=== PATIENT | female | born 1990 | race African-American/Black ===

== ENCOUNTER 2021-07-30 18:48 | Emergency (ER) | payer SELFPAY ==
[~2021-07-30] VITALS: Ht 160 cm; Wt 86.2 kg
[2021-07-30] MEDS ORDERED: KETOROLAC TROMETHAMINE 30 MG/ML VIAL IV STA (19:55)
[2021-07-30] MEDS ORDERED: ONDANSETRON HCL INJ 2MG/ML 2ML 2 MG/ML VIAL IV STA (19:58)
[2021-07-30] MEDS ORDERED: SODIUM CHLORIDE 0.9% 1000ML 1,000 ML IV SCH (20:00)
[2021-07-30] MEDS ORDERED: SODIUM CHLORIDE 0.9% 1000ML 1,000 ML ONE (20:12)
[2021-07-30] MEDS ORDERED: KETOROLAC TROMETHAMINE 30 MG/ML VIAL ONE (20:12)
[2021-07-30] MEDS ORDERED: ONDANSETRON HCL INJ 2MG/ML 2ML 2 MG/ML VIAL ONE (20:19)
[2021-07-30] MEDS ORDERED: NAPROSYN500 MG PO (21:53)
[2021-07-30 21:58] VITALS: BP 121/79
== END 2021-07-30 22:05 | disposition home or self-care (01) ==
LOC: FSED 19:07
DX: S39.012A Strain of muscle, fascia and tendon of lower back, initial encounter (principal); S39.011A Strain of muscle, fascia and tendon of abdomen, initial encounter; F17.210 Nicotine dependence, cigarettes, uncomplicated
CPT/HCPCS: 74176; 81003; 81025; 99284; J1885; J2405; J7030